=== PATIENT | female | born 1990 | race Caucasian/White ===

== ENCOUNTER 2016-12-02 20:30 | Inpatient (IN) | payer BC ==
[~2016-12-02] VITALS: Ht 157.5 cm; Wt 70.8 kg
[~2016-12-02 20:30] MED LIST: DOCU-27 PO; IBUP-1060 PO; OXYC-323 PO
[2016-12-02 20:40] VITALS: BP 114/76
[2016-12-02] MEDS ORDERED: 0.9 % SODIUM CHLORIDE 10 ML DISP.SYRIN. IV PRN (21:00)
[2016-12-02] MEDS ORDERED: OXYTOCIN 30 UNIT/500 ML PREMIX 500 ML IV PRN ×2 (21:00)
[2016-12-02] MEDS ORDERED: ZOLPIDEM 5 MG TABLET. PO PRN (21:00)
[2016-12-02] MEDS ORDERED: ONDANSETRON PF 4 MG/2 ML VIAL. IV PRN (21:00)
[2016-12-02] MEDS ORDERED: ACETAMINOPHEN 325 MG TABLET. PO PRN (21:00)
[2016-12-02] MEDS ORDERED: DOCUSATE SODIUM 283 MG/5 ML ENEMA. PR PRN (21:00)
[2016-12-02] MEDS ORDERED: LIDOCAINE 1% PF 30 ML VIAL. INJ PRN (21:00)
[2016-12-02] MEDS ORDERED: fentaNYL PF VIAL 100 MCG/2 ML VIAL IV PRN ×2 (21:00)
[2016-12-02] MEDS ORDERED: MAG HYDROX/ALUMINUM HYD/SIMETH 30 ML ORAL.SUSP PO PRN (21:00)
[2016-12-02] MEDS ORDERED: TERBUTALINE 1 MG/ML VIAL. SQ PRN (21:00)
[2016-12-02 21:15] LABS: HEMATOCRIT 34.5 % (36.0-47.0); HEMOGLOBIN 11.9 g/dL (12.0-15.5); RED BLOOD COUNT 3.92 x10^6/uL (3.50-5.40); RED CELL DISTRIBUTION WIDTH 13.8 % (11.5-14.5); WHITE BLOOD COUNT 9.2 x10^3/uL (4.0-11.0)
[2016-12-02] MEDS ORDERED: DINOPROSTONE 10 MG SUPP.VAG VG ONE (21:15)
[2016-12-03] MEDS: IV RINGERS,LACTATED 1000ML 1,000 ML IV SCH ×3 (01:03→07:47)
[2016-12-03] MEDS ORDERED: ROPIVacaine 0.2% IN 0.9%NACL PF 40 MG/20 ML DISP.SYRIN. ONE ×2 (06:28→06:30)
[2016-12-03] MEDS ORDERED: L&D EPIDURAL CASSETTE 100 ML EP ONE (06:28)
[2016-12-03] MEDS ORDERED: L&D EPIDURAL CASSETTE 100 ML PUMP.RESVR. EP ONE (06:30)
[2016-12-03] MEDS ORDERED: PHENYLEPHRINE in 0.9% NACL PF 1 MG/10 ML DISP.SYRIN. IV ONE (07:10)
[2016-12-03] MEDS ORDERED: IV RINGERS,LACTATED 1000ML 1,000 ML IV SCH (07:37)
[2016-12-03] MEDS ORDERED: fentaNYL PF VIAL 100 MCG/2 ML VIAL EPI PRN (07:45)
[2016-12-03] MEDS ORDERED: BUPIVACAINE MPF 0.25% 10 ML VIAL. EPI PRN (07:45)
[2016-12-03] MEDS ORDERED: PROCHLORPERAZINE 10 MG/2 ML VIAL. IV PRN (07:45)
[2016-12-03] MEDS ORDERED: diphenhydrAMINE 50 MG/ML VIAL IV PRN (07:45)
[2016-12-03] MEDS ORDERED: IV RINGERS,LACTATED 500ML 500 ML IV PRN (07:45)
[2016-12-03] MEDS ORDERED: PHENYLEPHRINE in 0.9% NACL PF 1 MG/10 ML DISP.SYRIN. IV PRN (07:45)
[2016-12-03] MEDS ORDERED: ROPIVacaine 0.2% IN 0.9%NACL PF 40 MG/20 ML DISP.SYRIN. EPI PRN (07:45)
[2016-12-03] MEDS ORDERED: ONDANSETRON PF 4 MG/2 ML VIAL. IV PRN (07:45)
[2016-12-03] MEDS ORDERED: L&D EPIDURAL CASSETTE 100 ML EP PRN (07:45)
[2016-12-03] MEDS ORDERED: NALOXONE 0.4 MG/ML VIAL. IV PRN (07:45)
[2016-12-03] MEDS ORDERED: BUPIVACAINE MPF 0.25% 30 ML VIAL. ONE (09:40)
--- NOTE | 2016-12-03 10:39 | PDOC1 ---
OB - History Hx of Present Care: Good Care Ultrasounds: Normal mid trimester US Obstetrical Complications: None Medical Complications: None Past Family/Social History * Past Medical, Surgical, Family and Obstetric Histories reviewed from chart. Rubella: Immune RPR/VDRL: Negative GBS Status: Negative HBsAG: Negative OB - Chief Complaint & HPI Date of Admission: Date of Admission: December 02, 2016 at 20:30 Chief Complaint/History : 2 Para: 1 EGA: 40 Reason for admission: induction of labor Indication for induction: post dates Admission Nurse Assessment Rev: Yes Problems: OB - Admission Exam Physical Exam Vitals: VS - Last 72 Hours, by Label Date Time Temp Pulse Resp B/P (MAP) Pulse Ox O2 Delivery O2 Flow Rate FiO2 12/02/16 20:40 98.8 18 114/76 (89) Room Air 98.8 HEENT: Normal Heart: Regular Rate Lungs: Clear Abdomen: Gravid, Non tender, Soft Extremities: Edema Reflexes: Normal Cervical Dilatation: 3cm Effacement: 75% Station: -3 Membranes: Intact Heart Rate: Normal Accelerations: Accelerations Present Decelerations: No decelerations Contractions on Admission: None Intensity: Mild Text A: 40 wks IUP IOL secondary to term gestation P: Admit for cervidil placement. Then pitocin in am. SHAYLA GARRISON Jr, MD December 03, 2016 10:39
--- NOTE | 2016-12-03 11:11 | PDOC ---
VAGINAL DELIVERY DATE DATE: 12/03/16 TIME: 11:10 : 2 Para: 2 EGA: 40 VAGINAL DELIVERY: VTX VACCUM ASSISTED: No PLACENTA: Spontaneous 9/ SEX: Male WEIGHT Weight [3630 gm ] Nuchal Cord: No Amniotic Fluid: Clear PAIN: Epidural EPISIOTOMY: No EXTENSION: Yes (2nd degree midline laceration) REPAIRED WITH 2-0 vicryl EBL 300 ml COMPLICATIONS none CONDITION pt. stable Signs of Intrauterine Infectio: None Shoulder Dystocia: No Problems: SHAYLA GARRISON Jr, MD December 03, 2016 11:11
[2016-12-03] MEDS ORDERED: HYDROCORTISONE 1% TOPICAL OINTMENT 30GM TUBE. TP PRN (11:15)
[2016-12-03] MEDS ORDERED: MAG HYDROX/ALUMINUM HYD/SIMETH 30 ML ORAL.SUSP PO PRN (11:15)
[2016-12-03] MEDS ORDERED: BENZOCAINE 20% TOPICAL AEROSOL SPRAY 57GM CAN. TP PRN (11:15)
[2016-12-03] MEDS ORDERED: MAGNESIUM HYDROXIDE 2,400 MG/30 ML ORAL.SUSP. PO PRN (11:15)
[2016-12-03] MEDS ORDERED: PHENYLEPH/MINERAL OIL/PETROLAT RECTAL OINTMENT 28GM TUBE. RC PRN (11:15)
[2016-12-03] MEDS ORDERED: SIMETHICONE 80 MG TAB.CHEW PO PRN (11:15)
[2016-12-03] MEDS ORDERED: OXYTOCIN 30 UNIT/500 ML PREMIX 500 ML IV PRN (11:15)
[2016-12-03] MEDS ORDERED: MMR per PROTOCOL. MC PRN (11:15)
[2016-12-03] MEDS ORDERED: ACETAMINOPHEN 325 MG TABLET. PO PRN (11:15)
[2016-12-03] MEDS ORDERED: ZOLPIDEM 5 MG TABLET. PO PRN (11:15)
[2016-12-03] MEDS ORDERED: 0.9 % SODIUM CHLORIDE 10 ML DISP.SYRIN. IV PRN (11:15)
[2016-12-03] MEDS ORDERED: diphenhydrAMINE HCL 25 MG CAPSULE PO PRN (11:15)
[2016-12-03] MEDS: IBUPROFEN 800 MG TABLET. PO PRN ×2 (13:11→19:55)
[2016-12-03 14:40] VITALS: BP 131/71
[2016-12-03 15:58] VITALS: BP 125/77
[2016-12-03] MEDS ORDERED: FERROUS SULFATE 325 MG TABLET. PO SCH (17:00)
[2016-12-03 17:45] VITALS: BP 110/72
[2016-12-03] MEDS: oxyCODONE/APAP 5/325 1 TAB TABLET PO PRN (17:45)
[2016-12-03] MEDS: DOCUSATE SODIUM 100 MG CAPSULE. PO PRN (19:54)
[2016-12-03 23:01] VITALS: BP 86/54
[2016-12-04] MEDS: oxyCODONE/APAP 5/325 1 TAB TABLET PO PRN ×4 (00:07→16:26)
[2016-12-04] MEDS: IBUPROFEN 800 MG TABLET. PO PRN ×3 (03:30→21:03)
[2016-12-04 06:21] VITALS: BP 112/67
[2016-12-04 07:46] LABS: BASO % 0 % (0-3); EOS % 1 % (0-3); HEMATOCRIT 32.8 % (36.0-47.0); HEMOGLOBIN 10.9 g/dL (12.0-15.5); LYMPH # 1.8 x10^3/uL (1.0-4.8); LYMPH % 17 % (24-48); MEAN CORPUSCULAR HEMOGLOBIN 30 pg (25-35); MEAN CORPUSCULAR HGB CONC 33 g/dL (31-37); MEAN CORPUSCULAR VOLUME 91 fL (79-100); MONO % 6 % (0-9); NEUT % 76 % (31-73); PLATELET COUNT 194 x10^3/uL (140-400); RED BLOOD COUNT 3.62 x10^6/uL (3.50-5.40); RED CELL DISTRIBUTION WIDTH 14.3 % (11.5-14.5); WHITE BLOOD COUNT 10.6 x10^3/uL (4.0-11.0)
[2016-12-04] MEDS: DOCUSATE SODIUM 100 MG CAPSULE. PO PRN ×2 (08:31→21:03)
[2016-12-04] MEDS ORDERED: DIPHTH,PERTUSS(ACELL),TET TOX 0.5 ML DISP.SYRIN. VAX IM ONE (09:00)
[2016-12-04 13:00] VITALS: BP 108/72
--- NOTE | 2016-12-04 13:17 | PDOC ---
OB Progress Note Date of Service 12/04/16 Time of Evaluation 1315 Notes Pt. feeling well. Breast feeding. Lochia minimal. Pain cotrolled. Lab Laboratory Tests Test 12/02/16 21:05 12/04/16 07:25 White Blood Count 9.2 x10^3/uL (4.0-11.0) 10.6 x10^3/uL (4.0-11.0) Red Blood Count 3.92 x10^6/uL (3.50-5.40) 3.62 x10^6/uL (3.50-5.40) Hemoglobin 11.9 g/dL (12.0-15.5) 10.9 g/dL (12.0-15.5) Hematocrit 34.5 % (36.0-47.0) 32.8 % (36.0-47.0) Mean Corpuscular Volume 88 fL (79-100) 91 fL (79-100) Mean Corpuscular Hemoglobin 30 pg (25-35) 30 pg (25-35) Mean Corpuscular Hemoglobin Concent 34 g/dL (31-37) 33 g/dL (31-37) Red Cell Distribution Width 13.8 % (11.5-14.5) 14.3 % (11.5-14.5) Platelet Count 230 x10^3/uL (140-400) 194 x10^3/uL (140-400) Neutrophils (%) (Auto) 76 % (31-73) Lymphocytes (%) (Auto) 17 % (24-48) Monocytes (%) (Auto) 6 % (0-9) Eosinophils (%) (Auto) 1 % (0-3) Basophils (%) (Auto) 0 % (0-3) Neutrophils # (Auto) 8.0 x10^3uL (1.8-7.7) Lymphocytes # (Auto) 1.8 x10^3/uL (1.0-4.8) Monocytes # (Auto) 0.7 x10^3/uL (0.0-1.1) Eosinophils # (Auto) 0.1 x10^3/uL (0.0-0.7) Basophils # (Auto) 0.0 x10^3/uL (0.0-0.2) Laboratory Tests Test 12/04/16 07:25 White Blood Count 10.6 x10^3/uL (4.0-11.0) Red Blood Count 3.62 x10^6/uL (3.50-5.40) Hemoglobin 10.9 g/dL (12.0-15.5) Hematocrit 32.8 % (36.0-47.0) Mean Corpuscular Volume 91 fL (79-100) Mean Corpuscular Hemoglobin 30 pg (25-35) Mean Corpuscular Hemoglobin Concent 33 g/dL (31-37) Red Cell Distribution Width 14.3 % (11.5-14.5) Platelet Count 194 x10^3/uL (140-400) Neutrophils (%) (Auto) 76 % (31-73) Lymphocytes (%) (Auto) 17 % (24-48) Monocytes (%) (Auto) 6 % (0-9) Eosinophils (%) (Auto) 1 % (0-3) Basophils (%) (Auto) 0 % (0-3) Neutrophils # (Auto) 8.0 x10^3uL (1.8-7.7) Lymphocytes # (Auto) 1.8 x10^3/uL (1.0-4.8) Monocytes # (Auto) 0.7 x10^3/uL (0.0-1.1) Eosinophils # (Auto) 0.1 x10^3/uL (0.0-0.7) Basophils # (Auto) 0.0 x10^3/uL (0.0-0.2) Medications Current Medications Sodium Chloride (Normal Saline Flush) 3 ml QSHIFT PRN IV AFTER MEDS AND BLOOD DRAWS; Start 12/02/16 at 21:00; Stop 12/03/16 at 18:19; Status DC Ringer's Solution 1,000 ml @ 125 mls/hr Q8H IV Last administered on 12/03/16t 07:47; Start 12/02/16 at 21:30; Stop 12/03/16 at 18:19; Status DC Fentanyl Citrate (Fentanyl 2ml Vial) 100 mcg PRN Q30MIN PRN IV Severe pain; Start 12/02/16 at 21:00; Stop 12/03/16 at 18:19; Status DC Fentanyl Citrate (Fentanyl 2ml Vial) 50 mcg PRN Q20MIN PRN IV Labor pain; Start 12/02/16 at 21:00; Stop 12/03/16 at 18:19; Status DC Acetaminophen (Tylenol) 650 mg PRN Q6HRS PRN PO MILD PAIN / TEMP; Start at 21:00; Stop 12/03/16 at 11:17; Status DC Ondansetron HCl (Zofran) 4 mg PRN Q4HRS PRN IV NAUSEA/VOMITING; Start 12/02/16 at 21:00; Stop 12/03/16 at 11:17; Status DC Al Hydroxide/Mg Hydroxide (Mylanta Plus Xs) 30 ml PRN Q4HRS PRN PO HEARTBURN / GAS; Start 12/02/16 at 21:00; Stop 12/03/16 at 11:17; Status DC Zolpidem Tartrate (Ambien) 5 mg PRN QHS PRN PO INSOMNIA; Start 12/02/16 at 21: 00; Stop 12/03/16 at 11:18; Status DC Terbutaline Sulfate (Brethine) 0.25 mg 1X PRN PRN SQ SEE COMMENTS; Start at 21:00; Stop 12/03/16 at 18:19; Status DC Lidocaine HCl 30 ml 1X PRN PRN INJ SEE COMMENTS; Start 12/02/16 at 21:00; Stop 12/03/16 at 18:20; Status DC Oxytocin/Sodium Chloride 500 ml @ 0 mls/hr CONT PRN IV SEE I/O RECORD Last administered on 12/03/16 10:47; Start 12/02/16 at 21:00; Stop 12/03/16 at 18:20 ; Status DC Oxytocin/Sodium Chloride 500 ml @ 0 mls/hr CONT PRN PRN IV Post delivery bleeding; Start 12/02/16 at 21:00 Docusate Sodium (Enemeez) 283 mg PRN DAILY PRN [place] CONSTIPATION; Start 12/02/16 at 21:00 Dinoprostone (Cervidil) 10 mg 1X ONCE VG Last administered on 12/02/16 21:29 ; Start 12/02/16 at 21:15; Stop 12/03/16 at 18:20; Status DC Ropivacaine/ Fentanyl/NS 100 ml @ As Directed STK-MED ONCE EP ; Start 12/03/16 at 06:28; Stop 12/03/16 at 18:20; Status DC Ropivacaine 40 mg STK-MED ONCE .ROUTE ; Start 12/03/16 at 06:28; Stop 12/03/16 at 18:20; Status DC Ringer's Solution 1,000 ml @ 1,000 mls/hr Q1H IV ; Start 12/03/16 at 07:37; Stop 12/03/16 at 08:36; Status DC Ringer's Solution 500 ml @ 500 mls/hr 1X PRN PRN IV HYPOTENSION; Start at 07:45; Stop 12/03/16 at 18:20; Status DC Phenylephrine HCl 0.05 mg PRN Q2MIN PRN IV SBP less than 90; Start 12/03/16 at 07:45 Naloxone HCl (Narcan) 0.04 mg PRN Q1MIN PRN IV SEE COMMENTS; Start 12/03/16 at 07:45 Fentanyl Citrate (Fentanyl 2ml Vial) 100 mcg PRN 1X PRN EPI FOR ANESTHESIA; Start 12/03/16 at 07:45; Stop 12/03/16 at 18:20; Status DC Bupivacaine HCl (Sensorcaine-Mpf 0.25%) 10 ml PRN 1X PRN EPI FOR ANESTHESIA; Start 12/03/16 at 07:45; Stop 12/03/16 at 18:20; Status DC Ropivacaine/ Fentanyl/NS 100 ml @ 12 mls/hr CONT PRN EP PAIN; Start 12/03/16 at 07:45; Stop 12/03/16 at 18:20; Status DC Ondansetron HCl (Zofran) 4 mg PRN Q6HRS PRN IV NAUSEA/VOMITING; Start 12/03/16 at 07:45; Stop 12/03/16 at 18:20; Status DC Prochlorperazine Edisylate (Compazine) 5 mg PRN Q6HRS PRN IV NAUSEA/VOMITING; Start 12/03/16 at 07:45; Stop 12/03/16 at 18:20; Status DC Diphenhydramine HCl (Benadryl) 12.5 mg PRN Q2HR PRN IV ITCHING; Start 12/03/16 at 07:45 Ropivacaine 40 mg PRN 1X PRN EPI SEE COMMENTS; Start 12/03/16 at 07:45; Stop at 18:20; Status DC Ropivacaine/ Fentanyl/NS (Afwtyeln-Nwcbo-NX 3 Mcg-0.1%) 100 ml STK-MED ONCE EP ; Start 12/03/16 at 06:30; Stop 12/03/16 at 18:20; Status DC Ropivacaine 40 mg STK-MED ONCE .ROUTE ; Start 12/03/16 at 06:30; Stop 12/03/16 at 18:20; Status DC Bupivacaine HCl (Sensorcaine Mpf 0.25%) 30 ml STK-MED ONCE .ROUTE ; Start at 09:40; Stop 12/03/16 at 18:20; Status DC Sodium Chloride (Normal Saline Flush) 10 ml QSHIFT PRN IV AFTER MEDS AND BLOOD DRAWS; Start 12/03/16 at 11:15; Stop 12/04/16 at 08:46; Status DC Oxytocin/Sodium Chloride 500 ml @ 62.5 mls/hr CONT PRN IV SEE I/O RECORD; Start 12/03/16 at 11:15; Stop 12/03/16 at 19:14; Status DC Acetaminophen (Tylenol) 650 mg PRN Q6HRS PRN PO MILD PAIN / TEMP; Start at 11:15 Ibuprofen (Motrin) 800 mg PRN Q8HRS PRN PO INFLAMMATION/PAIN PREVENTION Last administered on 12/04/16 03:30; Start 12/03/16 at 11:15 Docusate Sodium (Colace) 100 mg PRN BID PRN PO CONSTIPATION Last administered on 12/04/16 08:31; Start 12/03/16 at 11:15 Magnesium Hydroxide (Milk Of Magnesia) 2,400 mg PRN DAILY PRN PO CONSTIPATION; Start 12/03/16 at 11:15 Al Hydroxide/Mg Hydroxide (Mylanta Plus Xs) 30 ml PRN Q4HRS PRN PO HEARTBURN / GAS; Start 12/03/16 at 11:15 Simethicone (Gas-X) 80 mg PRN AFTMEALHC PRN PO GAS / BLOATING; Start 12/03/16 at 11:15 Diphenhydramine HCl (Benadryl) 25 mg PRN Q6HRS PRN PO ITCHING; Start 12/03/16 at 11:15 Benzocaine (Americaine) 1 spray PRN QID PRN TP TOPICAL PAIN Last administered on 12/03/16 13:11; Start 12/03/16 at 11:15 Phenyleph/Shark Oil/Min Oil/Petrol (Preparation H) 1 scott PRN QID PRN RC RECTAL PAIN; Start 12/03/16 at 11:15 Hydrocortisone (Cortaid) 1 scott PRN QID PRN TP PERINEAL PAIN; Start 12/03/16 at 11:15 Ferrous Sulfate (Feosol) 325 mg BIDWMEALS PO ; Start 12/03/16 at 17:00; Stop 07/11 at 08:05; Status DC Zolpidem Tartrate (Ambien) 5 mg PRN QHS PRN PO INSOMNIA, MAY REPEAT X1; Start 12/03/16 at 11:15 Info (Do NOT chart on this placeholder) 1 ea 1X PRN PRN MC SEE COMMENTS; Start 12/03/16 at 11:15 Info (Do NOT chart on this placeholder) 1 ea 1X PRN PRN MC SEE COMMENTS; Start 12/03/16 at 11:15; Stop 12/03/16 at 18:20; Status DC Oxycodone/ Acetaminophen (Percocet 5/325) 2 tab PRN Q4HRS PRN PO MODERATE PAIN , SEVERE PAIN Last administered on 12/04/16 08:31; Start 12/03/16 at 11:15 Diphtheria/ Tetanus/Acell Pertussis (Boostrix) 0.5 ml ONCE ONCE VAX IM ; Start 12/04/16 at 09:00; Stop 12/04/16 at 09:01; Status DC Phenylephrine HCl 1 mg STK-MED ONCE IV ; Start 12/03/16 at 07:10; Stop 12/04/16 at 10:28; Status DC Active Scripts Active Percocet 5-325 Mg Tablet (Oxycodone/Acetaminophen) 1 Each Tablet 1-2 Tab PO Q4- 6HRS Ibuprofen 800 Mg Tablet 800 Mg PO Q8HRS Colace (Docusate Sodium) 100 Mg Capsule 100 Mg PO PRN BID PRN Exam Abd: soft, non tender, fundus firm Assessment PPD#1 s/p Plan of Care: Continue current Tx, Mgmt SHAYLA GARRISON Jr, MD December 04, 2016 13:17
[2016-12-04 23:00] VITALS: BP 97/53
[2016-12-05] MEDS: oxyCODONE/APAP 5/325 1 TAB TABLET PO PRN ×2 (03:30→11:13)
[2016-12-05 06:13] VITALS: BP 97/56
[2016-12-05] MEDS: IBUPROFEN 800 MG TABLET. PO PRN (08:13)
[2016-12-05] MEDS: DOCUSATE SODIUM 100 MG CAPSULE. PO PRN (08:13)
--- NOTE | 2016-12-05 10:02 | PDOC3 ---
OB DISCHARGE SUMMARY DATE OF ADMISSION: 12/03/16 DATE OF DISCHARGE: 12/05/16 REASON FOR ADMISSION: Induction of labor PROCEDURES: Ultrasound INTRAPARTUM PROCEDURES: Spontanous Vag Deliv PROCEDURES: None OPERATIONS: None DISCHARGE DIAGNOSIS: Term Delivered DISCHARGE INFORMATION: Activity, Diet HOSPITAL COURSE Unremarkable CONDITION AT DISCHARGE Stable MAC VALLES MD December 05, 2016 10:02
[2016-12-05] MEDS ORDERED: HYDR-971 PO (10:04)
[2016-12-05] MEDS ORDERED: NAPR500T PO (10:04)
[2016-12-05 10:53] VITALS: BP 103/65
== END 2016-12-05 13:00 | disposition home or self-care (01) | DRG 775 ==
LOC: 3 SO LND 20:30 → 3 NORTH 12-03 14:40
PROVIDERS: ADMIT Obstetrics & Gynecology; ATTEND Obstetrics & Gynecology
PROC: 10E0XZZ Delivery of Products of Conception, External Approach (ICD-10-PCS; principal; 2016-12-03)
PROC: 0KQM0ZZ Repair Perineum Muscle, Open Approach (ICD-10-PCS; 2016-12-03)
PROC: 3E0S3CZ (ICD-10-PCS; 2016-12-03)
PROC: 00HU33Z Insertion of Infusion Device into Spinal Canal, Percutaneous Approach (ICD-10-PCS; 2016-12-03)
DX: O80 Encounter for full-term uncomplicated delivery (principal); O70.1 Second degree perineal laceration during delivery; Z37.0 Single live birth; Z3A.40 40 weeks gestation of pregnancy
CPT/HCPCS: 36415; 85027; 86850; 86900; 86901; 90715; J2370; J2590; J2795; J7120

== ENCOUNTER 2018-11-17 06:04 | Day surgery (SDC) | payer BC ==
[~2018-11-17] VITALS: Ht 157.5 cm; Wt 54.4 kg
[~2018-11-17 06:04] MED LIST changes: +DOCU-109 PO; -DOCU-27 PO; +HYDR-3164 PO; +NAPR-683 PO; -OXYC-323 PO; +OXYC1TAB15 PO
[2018-11-17] MEDS ORDERED: PROCHLORPERAZINE 10 MG/2 ML VIAL. IV PRN (07:00)
[2018-11-17] MEDS ORDERED: fentaNYL PF VIAL 100 MCG/2 ML VIAL IV PRN ×2 (07:00)
[2018-11-17] MEDS ORDERED: MORPHINE SULFATE 2 MG/ML VIAL. IV PRN (07:00)
[2018-11-17] MEDS ORDERED: LIDOCAINE 1% PF 2 ML VIAL. ID PRN (07:00)
[2018-11-17] MEDS ORDERED: HYDROmorphone 2 MG/ML VIAL IV PRN (07:00)
[2018-11-17] MEDS ORDERED: IV RINGERS,LACTATED 1000ML 1,000 ML IV SCH (07:00)
[2018-11-17] MEDS ORDERED: ceFAZolin 2GM PREMIX 2 GM/50 ML BAG IV ONE (07:00)
[2018-11-17] MEDS ORDERED: ONDANSETRON PF 4 MG/2 ML VIAL. IV PRN (07:00)
[2018-11-17] MEDS ORDERED: SEVOFLURANE 31 TO 60 MINUTES. IH ONE (07:04)
[2018-11-17] MEDS ORDERED: LIDOCAINE 2% PF 5 ML VIAL. ONE (07:05)
[2018-11-17] MEDS ORDERED: PROPOFOL 20 ML IV ONE (07:05)
[2018-11-17] MEDS ORDERED: fentaNYL PF VIAL 100 MCG/2 ML VIAL ONE (07:05)
[2018-11-17] MEDS ORDERED: MIDAZOLAM HCL/PF 2 MG/2 ML VIAL. ONE (07:05)
[2018-11-17] MEDS ORDERED: ONDANSETRON PF 4 MG/2 ML VIAL. ONE (07:05)
[2018-11-17 07:26] LABS: U PREG PATIENT NEGATIVE (NEG)
--- NOTE | 2018-11-17 08:09 | PDOC ---
BRIEF OPERATIVE NOTE Date: Nov 17, 2018 Pre-Op Diagnosis 1. AUB 2. Post coital bleeding Post-Op Diagnosis Endometrial polyp Procedure Performed Op [facility] [place] Surgeon Dr. Navarrete Anesthesia Type: General Blood Loss 5 ml Specimens Obtained endometrial biopsy Findings endometrial polyp. Complications none Operative Note see dictation SHAYLA NAVARRETE Jr, MD Nov 17, 2018 08:09
--- NOTE | 2018-11-17 08:11 | DISCH ---
DISCHARGE INSTRUCTIONS Condition on Discharge Condition on Discharge: Stable Activity After Discharge Activity Instructions for Disc: Activity as tolerated Lifting Instructions after Dis: No heavy lifting Driving Instructions after Dis: Do not drive today Diet after Discharge Diet after Discharge: Regular Contacting the DRYifan after DC Call your doctor for: Concerns you may have Follow-Up Follow up with: Dr. Navarrete in 1 week SHAYLA NAVARRETE Jr, MD Nov 17, 2018 08:11
[2018-11-17] MEDS ORDERED: IBUP-1581 PO (08:25)
[2018-11-17] MEDS ORDERED: IBUPROFEN 400 MG TABLET. PO ONE (08:30)
--- NOTE | 2018-11-17 08:32 | OP ---
DATE OF SURGERY: PREOPERATIVE DIAGNOSES: 1. Abnormal uterine bleeding. 2. Postcoital bleeding. POSTOPERATIVE DIAGNOSES: 1. Abnormal uterine bleeding. 2. Postcoital bleeding. 3. Endometrial polyp. PROCEDURE: Operative hysteroscopy. SURGEON: Shayla Navarrete MD ANESTHESIA: GETA. ESTIMATED BLOOD LOSS: Less than 5 mL. COMPLICATIONS: None. FINDINGS: Endometrial polyp. SUMMARY: A 28-year-old with history of abnormal uterine bleeding, postcoital bleeding, unresponsive to OCPs. The patient was counseled on operative hysteroscopy with possible polyp removal. The patient voiced a clear understanding of risks, benefits and expectations and voiced a clear understanding to proceed. DESCRIPTION OF PROCEDURE: The patient was taken to surgery suite and placed in dorsal lithotomy position. She was prepped with Betadine solution and draped in a sterile fashion. After adequate anesthesia, a weighted speculum and curved Mihir placed vaginally. The anterior lip of the cervix was grasped with a single tooth tenaculum. The cervix was dilated with Hegar dilators up to size 6. The TruClear device was then placed. There was an endometrial polyp on the anterior wall of the uterus, which was removed. The remaining of the cavity appeared normal. The patient tolerated the procedure well. Single tooth tenaculum, TruClear device and weighted speculum were removed. She was taken to recovery room in stable condition. Sponge and needle count correct x 3. SHAYLA NAVARRETE MD DR: SON/swapna JOB#: [id number] / [id number]
[2018-11-17 09:15] VITALS: BP 112/70
--- NOTE | 2018-11-18 17:07 | PATHOLOGY ---
[facility] Accession Number: [id number] . 01 Material submitted: . endometrium - ENODMETIRAL BIOPSY . 01 Clinical history: . AUB, postcoital bleeding . 02 Diagnosis: Endometrial biopsy: - Secretory endometrium. - Endometrial polyps. LBQ/11/18/2018 . 02 Comment: There is no atypia or evidence of malignancy. (JPM/db; 11/18/2018) . 02 Electronically signed: . Tyrone Jaramillo MD, Pathologist NPI- [id number] . 01 Gross description: . The specimen is received in formalin, labeled "Shira Victoria, endometrial biopsy" and consists of a sock containing multiple fragments of pink-hall tissue measuring 5.0 x 2.4 x 0.5 cm in aggregate which are entirely submitted in A1-A2. (SDY; 11/17/2018) SYU/SYU . 02 Pathologist provided ICD-10: N84.0, N93.9, N93.0 . 02 CPT . 220935 Specimen Comment: A courtesy copy of this report has been sent to Specimen Comment: [phone], . Specimen Comment: Report sent to / DR MAXWELL Performed at: 01 [facility] [address], [place] [id number] MD Dre Carter MD Phone: [phone] Performed at: 02 [facility] [address], [place] [id number] MD Tyrone Jaramillo MD Phone: [phone]
== END 2018-11-17 09:20 | disposition home or self-care (01) ==
LOC: SURG 06:04
PROVIDERS: ATTEND Obstetrics & Gynecology
DX: N84.0 Polyp of corpus uteri (principal); N93.0 Postcoital and contact bleeding; Z98.890 Other specified postprocedural states; Z82.49 Family history of ischemic heart disease and other diseases of the circulatory system; Z80.0 Family history of malignant neoplasm of digestive organs; Z80.3 Family history of malignant neoplasm of breast
CPT/HCPCS: 58558; 81025; J0696; J2001; J2250; J2405; J2704; J3010; 88305